=== PATIENT | male | born 1960 | race Hispanic/Latino ===

== ENCOUNTER 2017-04-08 00:32 | Emergency (ER) | payer OTHER ==
[~2017-04-08 00:32] MED LIST: LOSA100T29 PO; METF500T6 PO
== END 2017-04-08 01:48 | disposition home or self-care (01) ==
LOC: EDH 00:32
DX: S69.81XA Other specified injuries of right wrist, hand and finger(s), initial encounter (principal); L08.89 Other specified local infections of the skin and subcutaneous tissue; I10 Essential (primary) hypertension; E11.9 Type 2 diabetes mellitus without complications; Z72.0 Tobacco use; X58.XXXA Exposure to other specified factors, initial encounter; Y93.89 Activity, other specified; Y92.520 Airport as the place of occurrence of the external cause; Y99.8 Other external cause status
CPT/HCPCS: 73140